=== PATIENT | female | born 1950 | race Caucasian/White ===

== ENCOUNTER → 2018-02-15 | Outpatient (CLI) | payer MEDICARE | END | disposition home or self-care (01) | LOC: RAH 10:41 | PROVIDERS: ATTEND Orthopaedic Surgery | DX: M24.111 Other articular cartilage disorders, right shoulder (principal) | CPT/HCPCS: 73221 ==

== ENCOUNTER → 2018-05-03 | Outpatient (CLI) | payer MEDICARE | END | disposition home or self-care (01) | LOC: RAH 10:20 | PROVIDERS: ATTEND Internal Medicine | DX: Z12.31 Encounter for screening mammogram for malignant neoplasm of breast (principal) | CPT/HCPCS: 77067 ==

== ENCOUNTER → 2019-05-18 | Outpatient (CLI) | payer MEDICARE | END | disposition home or self-care (01) | LOC: RAH 15:19 | PROVIDERS: ATTEND Internal Medicine | DX: Z12.31 Encounter for screening mammogram for malignant neoplasm of breast (principal) | CPT/HCPCS: 77067 ==

== ENCOUNTER 2019-06-20 09:52 | Day surgery (SDC) | payer MEDICARE ==
[2019-06-17 11:10] VITALS: BP 131/71
[2019-06-17] MEDS: CEFAZOLIN SODIUM 1 GM VIAL IVP SCH (14:00)
[~2019-06-20] VITALS: Ht 151.1 cm; Wt 56.7 kg
[2019-06-20] VITALS (20 sets, daily range): BP systolic 129–185; BP diastolic 59–127
[~2019-06-20 09:52] MED LIST: HYDROCHLORIDE PEG; LISI-613 PO; PRAV40TA3 PO; TRAZ-187 PO
[2019-06-20] MEDS ORDERED: LACTATED RINGERS 1000ML 1,000 ML IV ONE (10:21)
[2019-06-20] MEDS ORDERED: SODIUM CHLORIDE 0.9% 10 ML VIAL ONE (10:22)
[2019-06-20] MEDS ORDERED: LIDOCAINE PF 2% 5ML ABBOJECT ONE (12:27)
[2019-06-20] MEDS ORDERED: SUCCINYLCHOLINE 200MG/10ML SYR ONE (12:27)
[2019-06-20] MEDS ORDERED: DEXAMETHASONE SOD PHOSPHATE 10MG/ML 1ML VIAL ONE (12:28)
[2019-06-20] MEDS ORDERED: NEOSTIGMINE 5MG/5ML SYR IV ONE (12:28)
[2019-06-20] MEDS ORDERED: GLYCOPYRROLATE 1 MG/5 ML SYRINGE ONE (12:28)
[2019-06-20] MEDS ORDERED: ROCURONIUM 10MG/1ML SYR 10 MG/ML ML ONE (12:28)
[2019-06-20] MEDS ORDERED: MIDAZOLAM HCL 1 MG/ML 2ML VIAL ONE (12:28)
[2019-06-20] MEDS ORDERED: ONDANSETRON HCL 4 MG/2 ML VIAL ONE (12:28)
[2019-06-20] MEDS ORDERED: PROPOFOL 10 MG/ML 20ML VIAL IV ONE (12:28)
[2019-06-20] MEDS ORDERED: FENTANYL CITRATE PF 50 MCG/1 ML 2ML VIAL ONE (12:29)
[2019-06-20] MEDS ORDERED: EPINEPHRINE 1 MG/ML 30ML VIAL IJ ONE (13:01)
[2019-06-20] MEDS: CEFAZOLIN SODIUM 1 GM VIAL IVP SCH (14:35)
[2019-06-20] MEDS ORDERED: EPHEDRINE SULFATE 50 MG/ML AMPULE ONE (14:59)
[2019-06-20] MEDS ORDERED: CEPH500B PO (16:25)
[2019-06-20] MEDS ORDERED: NAPR-1192 PO (16:25)
[2019-06-20] MEDS ORDERED: HYDR-4457 PO (16:25)
[2019-06-20] MEDS ORDERED: HYDRALAZINE HCL 20 MG/ML VIAL ONE (17:09)
[2019-06-20] MEDS ORDERED: RACEPINEPHRINE HCL 2.25% 0.5 ML NEB SOLN ONE (17:37)
--- NOTE | 2019-06-20 17:40 | NUR ---
patient receiving racemic epinephrine treatment by respiratory therapist at this time
--- NOTE | 2019-06-20 18:15 | NUR ---
MIGUEL ANGEL JACKSON, NOTIFIED OF PT PERSISTENT COUGH, NORMAL OXYGEN SATURATIONS, STABLE VITAL SIGNS, PER ANESTHESIA OK TO DISCHARGE PT HOME.
== END 2019-06-20 19:34 | disposition home or self-care (01) ==
LOC: DAH 09:52
PROVIDERS: ATTEND Orthopaedic Surgery
DX: M75.112 Incomplete rotator cuff tear or rupture of left shoulder, not specified as traumatic (principal); M75.81 Other shoulder lesions, right shoulder; M25.511 Pain in right shoulder; M19.012 Primary osteoarthritis, left shoulder; I10 Essential (primary) hypertension; E78.5 Hyperlipidemia, unspecified; K21.9 Gastro-esophageal reflux disease without esophagitis; Z79.899 Other long term (current) drug therapy; Z98.890 Other specified postprocedural states; Z90.49 Acquired absence of other specified parts of digestive tract; Z90.710 Acquired absence of both cervix and uterus; Z82.49 Family history of ischemic heart disease and other diseases of the circulatory system
CPT/HCPCS: 29823; 29824; 29826; 64415; 94640; A4215; A4221; A4222; A4223; A4565; A4600; A4649 ×2; A4930; A5120; A6204; G0168; J0171; J0330; J0360; J0690; J1100; J2001; J2250; J2405; J2704; J2710; J3010; J3490 ×2; J7030; J7120 ×2

== ENCOUNTER → 2020-05-21 | Outpatient (CLI) | payer MEDICARE ==
[~2020-05-21] MED LIST changes: +CEPH500B PO; +HYDR-4457 PO; +NAPR-1192 PO
== END | disposition home or self-care (01) ==
LOC: RAH 10:48
PROVIDERS: ATTEND Internal Medicine
DX: Z12.31 Encounter for screening mammogram for malignant neoplasm of breast (principal); N64.89 Other specified disorders of breast
CPT/HCPCS: 77067

== ENCOUNTER → 2021-06-17 | Outpatient (CLI) | payer MEDICARE ==
[~2021-06-17] MED LIST changes: -LISI-613 PO; +LISI20TA24 PO
== END | disposition home or self-care (01) ==
LOC: RAH 11:18
PROVIDERS: ATTEND Internal Medicine
DX: Z12.31 Encounter for screening mammogram for malignant neoplasm of breast (principal)
CPT/HCPCS: 77067

== ENCOUNTER → 2023-02-24 | Outpatient (CLI) | payer OTHER | END | disposition home or self-care (01) | LOC: RAH 13:26 | PROVIDERS: ATTEND Student in an Organized Health Care Education/Training Program | DX: M19.072 Primary osteoarthritis, left ankle and foot (principal) | CPT/HCPCS: 73700 ==

== ENCOUNTER 2023-04-10 10:57 | Emergency (ER) | payer MEDICARE, OTHER ==
[~2023-04-10] VITALS: Ht 157.5 cm; Wt 58.5 kg
[2023-04-10 11:00] VITALS: BP 98/70
[2023-04-10 11:37] LABS: BASOPHILS % (AUTO) 0.5 % (0.0-5.0); EOSINOPHILS % (AUTO) 0.4 % (0.0-8.0); LYMPHOCYTES % (AUTO) 30.8 % (21.0-51.0); MEAN CORPUSCULAR HEMOGLOBIN 31.5 pg (27.0-33.0); MEAN CORPUSCULAR HGB CONC 34.9 g/dL (32.0-36.0); MEAN CORPUSCULAR VOLUME 90.5 fL (79-99); MONOCYTES % (AUTO) 13.4 % (3.0-13.0); NEUTROPHILS % (AUTO) 54.3 % (40.0-77.0); PLATELET COUNT (AUTO) 283 K/uL (130-400); RED BLOOD CELL COUNT(AUTO) 4.09 MIL/uL (4.00-5.50); RED CELL DISTRIBUTION WIDTH 12.5 % (11.0-15.5); WHITE BLOOD COUNT (AUTO) 8.1 K/uL (4.8-10.8)
[2023-04-10] MEDS ORDERED: 0.9%NACL 1000ML 1,000 ML IV ONE (12:30)
[2023-04-10 12:54] LABS: ALBUMIN 3.9 g/dL (3.5-5.0); POTASSIUM 3.8 mmol/L (3.5-5.1)
[2023-04-10 13:52] LABS: APPEARANCE,URINE CLEAR (CLEAR); BILIRUBIN,URINE NEGATIVE (NEGATIVE); COLOR,URINE LIGHT-YELLOW (YELLOW); GLUCOSE, URINE (UA) NEGATIVE (NEGATIVE); KETONES,URINE NEGATIVE (NEGATIVE); LEUKOCYTE ESTERASE ,URINE NEGATIVE Leu/uL (NEGATIVE); NITRATE,URINE NEGATIVE (NEGATIVE); OCCULT BLOOD,URINE NEGATIVE (NEGATIVE); PROTEIN,URINE NEGATIVE (NEGATIVE); UROBILINOGEN,URINE 0.2 mg/dL (0.2-1.0)
== END 2023-04-10 15:52 | disposition home or self-care (01) ==
LOC: EDH 10:57
DX: E87.1 Hypo-osmolality and hyponatremia (principal); E86.0 Dehydration; I10 Essential (primary) hypertension; E78.00 Pure hypercholesterolemia, unspecified; Z90.49 Acquired absence of other specified parts of digestive tract; Z90.710 Acquired absence of both cervix and uterus; Z98.890 Other specified postprocedural states; Z79.899 Other long term (current) drug therapy
CPT/HCPCS: 99285; 96360; 71045; 83735; 84484; 80053; 85025; 81003; 36415; 93005; J7030; 96365

== ENCOUNTER → 2023-06-22 | Outpatient (CLI) | payer MEDICARE | END | disposition home or self-care (01) | LOC: RAH 10:30 | PROVIDERS: ATTEND Nurse Practitioner Family | DX: Z12.31 Encounter for screening mammogram for malignant neoplasm of breast (principal) | CPT/HCPCS: 77067 ==

== ENCOUNTER → 2024-05-02 | Outpatient (CLI) | payer MEDICARE ==
[2024-05-02 10:11] LABS: CREATININE 1.2 mg/dL (0.5-1.0)
== END | disposition home or self-care (01) ==
LOC: LAB 09:36
PROVIDERS: ATTEND Internal Medicine Gastroenterology
DX: K57.32 Diverticulitis of large intestine without perforation or abscess without bleeding (principal)
CPT/HCPCS: 36415; 82565; 84520

== ENCOUNTER → 2024-05-09 | Outpatient (CLI) | payer MEDICARE ==
[~2024-05-09] MED LIST changes: +IOHEXOL-350 75 ML VIAL IV ONE
== END | disposition home or self-care (01) ==
LOC: RAH 08:45
PROVIDERS: ATTEND Internal Medicine
DX: K57.32 Diverticulitis of large intestine without perforation or abscess without bleeding (principal); K44.9 Diaphragmatic hernia without obstruction or gangrene; N28.1 Cyst of kidney, acquired; A15.9 Respiratory tuberculosis unspecified; M47.815 Spondylosis without myelopathy or radiculopathy, thoracolumbar region
CPT/HCPCS: 74178; Q9967

== ENCOUNTER → 2024-08-17 | Outpatient (CLI) | payer MEDICARE ==
[~2024-08-17] MED LIST changes: -IOHEXOL-350 75 ML VIAL IV ONE
== END | disposition home or self-care (01) ==
LOC: CANSCHCLI → RAH 13:58
PROVIDERS: ATTEND Student in an Organized Health Care Education/Training Program
DX: Z12.31 Encounter for screening mammogram for malignant neoplasm of breast (principal); R92.333 Mammographic heterogeneous density, bilateral breasts
CPT/HCPCS: 77067